=== PATIENT | female | born 1950 | race Caucasian/White ===

== ENCOUNTER 2018-03-22 23:22 | Emergency (ER) | payer MEDICARE, BC ==
[2018-03-22 23:41] VITALS: PULSE 79; TEMP 97.9
[2018-03-22 23:57] LABS: BASOPHILS % (AUTO) 2 % (0-3); EOSINOPHILS % (AUTO) 0 % (0-9); HEMATOCRIT 38 % (35-47); HEMOGLOBIN 12.9 gm/dl (12.0-15.5); LYMPHOCYTES % (AUTO) 10.2 % (10-50); MEAN CORPUSCULAR HEMOGLOBIN 29.5 pg (27.0-32.0); MEAN CORPUSCULAR HGB CONC 33.7 gm/dl (32.0-36.0); MEAN CORPUSCULAR VOLUME 87 fL (81-99); MONOCYTES % (AUTO) 6.4 % (0-12); NEUTROPHILS % (AUTO) 81.2 % (37-80)
[2018-03-23 00:01] LABS: CALCIUM 8.5 mg/dl (8.5-10.1); CARBON DIOXIDE 29.4 mEq/L (21-32); CREATININE 0.79 mg/dl (0.60-1.00)
[2018-03-23] MEDS ORDERED: POTASSIUM CHLORIDE 10 MEQ TER PO ONE (00:16)
[2018-03-23] MEDS ORDERED: POTASSIUM CHLORIDE 10 MEQ TER ONE (00:18)
[2018-03-23 01:01] VITALS: BP 144/72; RESP 18; O2SAT 95
== END 2018-03-23 00:36 | disposition home or self-care (01) | DRG 312 ==
LOC: ED 23:22
DX: R55 Syncope and collapse (principal)
CPT/HCPCS: 70450; 80048; 85025; 93005; 99284; 99285; A9270-GY